=== PATIENT | female | born 1990 | race Hispanic/Latino ===

== ENCOUNTER 2017-08-13 08:20 | Emergency (ER) | payer SELFPAY ==
[2017-08-13] MEDS ORDERED: KETOROLAC TROMETHAMINE 60 MG/2 ML VIAL ONE (10:02)
[2017-08-13] MEDS ORDERED: SULFAMETHOX-TMP DS 800/160 TAB ONE (10:02)
== END 2017-08-13 10:43 | disposition home or self-care (01) ==
LOC: EDH 08:20
DX: N76.2 Acute vulvitis (principal); Z87.891 Personal history of nicotine dependence
CPT/HCPCS: 81025; 96372; 99283; J1885